=== PATIENT | female | born 1965 | race African-American/Black ===

== ENCOUNTER 2024-11-19 10:22 | Emergency (ER) | payer BC, OTHER ==
[~2024-11-19] VITALS: Ht 162.6 cm; Wt 131.0 kg
[2024-11-19 11:04] VITALS: O2SAT 97
[2024-11-19 12:20] LABS: CLARITY URINE CLEAR (CLEAR); COLOR URINE YELLOW (YELLOW); GLUCOSE URINE NEGATIVE (NEGATIVE); KETONES URINE NEGATIVE (NEGATIVE); LEUKOCYTE ESTERASE URINE NEGATIVE (NEGATIVE); NITRITE URINE NEGATIVE (NEGATIVE); OCCULT BLOOD URINE NEGATIVE (NEGATIVE); PH URINE 6.0 (4.5-8.0); PROTEIN URINE NEGATIVE (NEGATIVE); SPECIFIC GRAVITY URINE 1.012 (1.005-1.030); UROBILINOGEN URINE 0.2 E.U./dL (0.2-1.0)
[2024-11-19] MEDS: ACETAMINOPHEN 500MG TABLET PO ONE (12:22)
[2024-11-19] MEDS ORDERED: ACET-2708 MT (14:18)
[2024-11-19] MEDS ORDERED: LIDO700A30 TP (14:18)
[2024-11-19 14:43] VITALS: BP 173/74; PULSE 60; RESP 18; TEMP 36.4; O2SAT 100
== END 2024-11-19 14:46 | disposition home or self-care (01) ==
LOC: ER 10:22
DX: M54.50 Low back pain, unspecified (principal); I10 Essential (primary) hypertension
CPT/HCPCS: 74176; 81003; 99284